=== PATIENT | male | born 1960 | race Caucasian/White ===

== ENCOUNTER 2019-06-22 14:28 | Outpatient (CLI) | payer MEDICAID, SELFPAY ==
--- NOTE | 2019-06-22 14:52 | XR_ITS ---
WS: [id number] DEXA (DUAL ENERGY X-RAY ABSORPTIOMETRY) Bone mineral density was performed using a [employer] machine. HISTORY: OTHER SPECIFIED DISORDERS OF BONE STRUCTURES COMPARISON: None available. Lumbar spine BMD (L1-L4): 1.179 g/cm2 T score: -0.3 Z score: -0.2 Total hip BMD: Right: 0.927. T score: -1.2 Z score: -0.9 10 year probability of a major osteoporotic fracture is 16%. XR/XR DEXA axial skeleton* 96182 IMPRESSION: OSTEOPENIA based upon the WHO classification for females.
== END 2019-06-22 14:29 | disposition home or self-care (01) ==
PROVIDERS: Family Provider Physician Assistant; PCP Physician Assistant; Referring Provider Physician Assistant; Visit Provider Physician Assistant
DX: M85.88 Other specified disorders of bone density and structure, other site (principal)
CPT/HCPCS: 77080

== ENCOUNTER 2019-08-24 06:26 | Day surgery (SDC) | payer MEDICAID, SELFPAY ==
[2019-08-19 12:33] VITALS: BMI 25.5
--- NOTE | 2019-08-19 12:39 | ECG_ITS ---
Measurements Intervals [place] Rate: 73 P: SD: 0 QRS: 13 QRSD: 90 T: -9 QT: 395 QTc: 438 ATRIAL FIBRILLATION NONSPECIFIC T-WAVE ABNORMALITY No previous ECG available for comparison Electronically Signed On 08-19-2019 15:36:05 [employer] TECHNICIAN by Mari Martinez M.D. [email or web address]
--- NOTE | 2019-08-19 13:21 | ANES.PREANE2 ---
Pre-Anesthetic Assessment Pre-Anesthetic Assessment: Height/Weight: Height 1.8 m Weight 83.007 kg Preop Diagnosis: Facture inferior left glenoid, partial-thickness tear rotator cuff Proposed Procedure: Operation Date: 08/24/19 07:50 Proposed Procedures p left shoulder diagnostic arthroscopy (91967) with possible rotator cuff repair (72824)M75.102(Left) - Abilio Cm MD s Possible Rotator Cuff Repair(Left) - Abilio Cm MD Familial anesthetic complications: No trouble Social: Social History: No alcohol and No tobacco Exam: Pre-Anes Outpt Exam: alert, oriented x 3, clear to auscultation bilaterally and regular rate & rhythm Airway: Cervical ROM: WNL MP: 4 Dentition: Full Pulmonary: Pulmonary: None reported CV/HEM: CV/HEM: Afib, CHF and HTN : : None reported Hepatic: Hepatic: Cirrohsis Comments: hx alcoholic hepatitis on rifaxamin GI: GI: None reported Metabolic: Metabolic: None reported Musc/skel: Musc/skel: None reported Neuropsych: Neuropsych: Neuropathy (b/l feet) Anesthetic Plan: ASA status: 3 Anesthesia: General and Regional (specify below) Other: interscalene Risk of > 500 ml blood loss (7ml/kg in children): No PFSH Anesthesia PFSH: Medical History Fracture of glenoid cavity of left scapula Social History (Updated 08/19/19 @ 12:37 by Ignacia Sanches) Smoking and tobacco status: former smoker Quit status (tobacco): has quit using tobacco Alcohol intake: never Data Anesthesia Cardiac Studies: No Data to Display
[2019-08-24] VITALS (16 sets, daily range): BP systolic 114–141; BP diastolic 67–99; PULSE 84–117; RESP 12–20; TEMP 36.1–37.3; O2SAT 94–100
[2019-08-24] MEDS: sodium chloride 0.9% 1,000 ML 30 ML IV (07:26)
--- NOTE | 2019-08-24 07:54 | P.ANESUD_ITS ---
Pre-Anesthetic Update Pre-Anesthetic Assessment: Date of Surgery/Procedure: 08/24/19 Preop Lisette gnosis: Facture inferior left glenoid, partial-thickness tear rotator cuff Proposed Procedure: Operation Date: 08/24/19 08:35 Proposed Procedures p left shoulder diagnostic arthroscopy (55533) with possible rotator cuff repair (74864)M75.102(Left) - Abilio Cm MD s Possible Rotator Cuff Repair(Left) - Abilio Cm MD Any changes to Pre-Anesthetic Assessment?: No Last Intake: Intake Last Liquid Date 08/23/19 Last Liquid Time 23:50 Last Solid Date 08/23/19 Last Solid Time 23:50 Vitals: Temperature 97.4 F L 08/24/19 07:14 Temperature Source Temporal Artery S can 08/24/19 07:14 Pulse Rate 84 08/24/19 07:14 Respiratory Rate 18 08/24/19 07:14 Blood Pressure 114/78 08/24/19 07:14 Blood Pressure Teresa n 90 08/24/19 07:14 Pulse Oximetry 97 08/24/19 07:14 Oxygen Delivery Me thod 08/24/19 07:14 Exam: Pre-Anes Outpt Exam: alert, oriented x 3, clear to auscultation bilaterally and regular rate & rhythm Cardiac Studies: No Data to Display
[2019-08-24 08:00] LABS: Anion Gap 17.8 (5-19); Blood Urea Nitrogen 6 mg/dL (6-20); Calcium 8.7 mg/dL (8.5-10.5); Carbon Dioxide 25 mmol/L (22-29); Chloride 107 mmol/L (98-107); Glomerular Filtration Rate 99.3 mL/min (90-130); Glucose 113 mg/dL (65-115); Osmolality Calculated 299 mOsm/kg (285-295); Potassium 3.8 mmol/L (3.5-5.1); Sodium 146 mmol/L (136-145)
--- NOTE | 2019-08-24 08:39 | ANES.PROC ---
Anesthesia Procedures Procedure/Date: 08/24/19 Nerve Block ^: Nerve Block 1: Main Anesthesia: other Time Out Performed: Yes Consent: requested by attending/covering physician, from patient and patient agrees to proceed Nerve block location: interscalene Nerve block position: semi sitting Anesthetic Used: lidocaine 1% (intradermal local) and ropivicaine 0.5% (30mls incrementally dosed) Amount of anesthesia used (mL): 30 Ultrasound used to: recognize landmarks and visualize and ID brachial plexus Nerve Stimulator Used?: No Interscalene/Femoral BLK: 2 stimuplex 22 g needle used for position and inplane approach Injection: neg aspiration of heme Patient Tolerated Procedure: well Complications: none
--- NOTE | 2019-08-24 09:26 | W.PM.OPSUD ---
Surgery/Procedure H&P Update DATE OF PROCEDURE: August 24, 2019 DATE H&P PERFORMED: 08/04/19 H&P UPDATE INFORMATION: I have reviewed H&P completed within last 30 days and No changes to prior documentation PREOP DIAGNOSIS: Facture inferior left glenoid, partial-thickness tear rotator cuff PRIMARY INDICATION FOR PROCEDURE: Left shoulder pain. Chronic anterior/inferior genoid fracture. Partial thickness tear rotator cuff PLANNED PROCEDURE: Operation Date: 08/24/19 08:35 Proposed Procedures p left shoulder diagnostic arthroscopy (58802) with possible rotator cuff repair (71772)M75.102(Left) - Abilio Cm MD s Possible Rotator Cuff Repair(Left) - Abilio Cm MD
--- NOTE | 2019-08-24 11:06 | PM.OP ---
Operative Report Date of procedure: August 24, 2019 Pre-op Diagnosis: Old fractuacture inferior left glenoid, partial-thickness tear rotator cuff Post-op diagnosis: same Post-op Findings: Same Procedure Done: Arthroscopic repair left rotator cuff with bio inductive implant, debridement chondromalacia anterior glenoid Implants: Astudillo [employer] Nephew Regeneten patch Pathology: none sent Estimated blood loss (mL): 25 Complications: None Findings: The patient had high-grade chondromalacia with spotty areas of exposed subchondral bone over the humeral head in the area of the cartilage loss over the anterior inferior labrum. There seem to be healing of the anterior inferior fracture fragment with chondromalacia and cartilage loss on the overlying cartilage. He had a high-grade partial-thickness tear of the leading edge of the supraspinatus tendon measuring approximately a centimeter and a half from anterior to posterior and medial retraction of articular aspect of approximately 1 cm. He has no evidence of instability under anesthesia Condition: stable Disposition: PACU Brief History: The patient is a 59-year-old male who sustained a fracture to his right anterior inferior glenoid and articular tear of his rotator cuff. He failed conservative measures including a home program and corticosteroid injection. Arthroscopy was chosen to assess damage to the anterior inferior glenoid and rotator cuff and offer potential treatment Procedure: The patient was taken to the operating room after an interscalene block provided by anesthesia. He was prepped and draped in the lateral position with his left arm in 15 pounds of traction. Initially the arm was brought through a range of motion passively. It could be flexed to 150 degrees and externally rotated 50 degrees. In 90 degrees of abduction degrees external rotated 70 degrees and into the rotated 60 degrees. No adhesions were felt to release and it was felt that his motion loss preoperatively was a result of pain. He was given 2 g of Ancef. A timeout was performed. A posterior portal was made 2 cm inferior medial to the posterior corner of the acromion. A scope cannula and trocar were driven into the glenohumeral joint. A incision was made in the rotator interval and an incisor shaver introduced into the glenohumeral joint. Blood and debris's were removed. Careful attention was paid to the anterior glenoid. The anterior inferior bone fragment appeared to be healed. There was fibrillation and flaps over the overlying cartilage. This was debrided back with incisor shaver and Astudillo and Nephew Werewolf probe removing unstable fragments of cartilage. Generalized fibrillation and narrowing over the humeral head was lightly debrided but no specific flaps are unstable large fragments were identified. The undersurface the rotator cuff was inspected where the high-grade partial-thickness tear was identified. Arthroscopy equipment was then removed moved to the subacromial space. A lateral working portal was opened up and bursal tissue was are removed. The area of partial-thickness tearing was palpated revealing reasonable bursal quality tendon however biologic thinning of the tendon. He had a flat acromion and there was not thought to be any benefit toward additional acromioplasty. As the patient had degenerative changes and motion loss preoperatively a physician was made to proceed with biological augmentation that would allow immediate motion of the shoulder. The scope was briefly placed back into the glenohumeral joint and the biceps tendon marked with a spinal needles to the cuff. The scope was then placed back in the subacromial space. Through a more anterior and inferior incision the Astudillo and Nephew Regeneten implant was introduced. Through a central more dorsal stab wound the medial anterior and posterior edges were fixed with soft tissue peri. Through the previous lateral cannula 2 bone peri were placed. The shoulder was irrigated with saline. As there was no spurring a decompression was not performed. Portals were closed with 3-0 Prolene. Sterile dressings were applied. The patient was placed in a sling, extubated, and taken to recovery room in stable condition.
--- NOTE | 2019-08-24 11:14 | SUR.PHASEI ---
1112 PATIENT TO PACU AT THIS TIME. RR EVEN AND UNLABORED. PLACED ON SIMPLE MASK AT 8L, SPO2 99%. DRESSING TO LEFT SHOULDER, CDI, WITH SLING IN PLACE.
[2019-08-24] MEDS: meperidine 50 mg/mL INJ 12.5 MG IVP (11:32)
[2019-08-24] MEDS: ondansetron 2 mg/ML SDV 2 mL 4 MG IVP (11:46)
[2019-08-24] MEDS: fentaNYL 50 mcg/mL INJ 2mL IVP (11:50)
--- NOTE | 2019-08-24 12:07 | SUR.PHASEI ---
1202 PATIENT TO OPS AT THIS TIME. TALKATIVE, RR EVEN AND UNLABORED. DRESSING, CDI TO LEFT SHOULDER, WITH SLING IN PLACE.
--- NOTE | 2019-08-24 12:07 | SUR.PHASEI ---
1202 ANESTHESIA AWARE OF PATIENTS LAST DOSE OF MEDICATION, THIS NURSE REMAINED WITH PATIENT UNTIL 1205.
[2019-08-24] MEDS: oxyCODONE-APAP 5-325 mg Tablet 1 TAB PO (12:25)
--- NOTE | 2019-08-24 13:12 | PM.PACU ---
PACU note Post-Anesthesia Exam: awake and vital signs stable Disposition: discharged
== END 2019-08-24 12:54 | disposition home or self-care (01) ==
PROVIDERS: Family Provider Physician Assistant; PCP Physician Assistant; Visit Provider Orthopaedic Surgery
PROC: (CPT 29805; principal; 2019-08-24 08:35)
PROC: (CPT 29822; 2019-08-24 08:35)
DX: S42.142A Displaced fracture of glenoid cavity of scapula, left shoulder, initial encounter for closed fracture (principal); X58.XXXA Exposure to other specified factors, initial encounter; M75.102 Unspecified rotator cuff tear or rupture of left shoulder, not specified as traumatic; I48.91 Unspecified atrial fibrillation; I11.0 Hypertensive heart disease with heart failure; I50.9 Heart failure, unspecified; Z87.891 Personal history of nicotine dependence
CPT/HCPCS: 29822; 29827; 12345; 80048; 93005; C1713; J2001; J2175; J2370; J2405; J2704; J2710; J2795; J3010; J3490; J7030

== ENCOUNTER → 2019-10-06 08:24 | Outpatient (BNVA) | payer MEDICAID, SELFPAY | PROVIDERS: Family Provider Physician Assistant; PCP Physician Assistant; Referring Provider Physician Assistant; Visit Provider Nurse Practitioner | DX: G62.9 Polyneuropathy, unspecified (principal); K76.9 Liver disease, unspecified | CPT/HCPCS: 99204; 99999 ==